=== PATIENT | male | born 2005 | race Caucasian/White ===

== ENCOUNTER 2025-02-13 20:45 | Emergency (ER) | payer SELFPAY ==
[~2025-02-13] VITALS: Ht 167.6 cm; Wt 63.6 kg
[2025-02-13 20:48] VITALS: BP 139/77; TEMP 98.3; O2SAT 100
[2025-02-13 21:17] LABS: KETONE, URINE AUTO RFX NEGATIVE (NEGATIVE); LEUKOCYTE ESTERASE UR AUTO RFX NEGATIVE (NEGATIVE); NITRITE, URINE AUTO RFX NEGATIVE (NEGATIVE); RBC, URINE AUTO RFX 1 /HPF (0-3); SQUAM EPITHELIAL CELL UR AURFX 0 /HPF (0-6); WBC, URINE AUTO RFX 0 /HPF (0-3)
[2025-02-13 22:17] LABS: Trichomonas vaginalis (AMP) NOT DETECTED (NEGATIVE)
[2025-02-13 22:41] LABS: GC DNA AMPLIFICATION NEGATIVE (NEGATIVE)
== END 2025-02-14 02:49 | disposition left against medical advice (07) ==
LOC: M ED 20:45
DX: Z53.21 Procedure and treatment not carried out due to patient leaving prior to being seen by health care provider (principal)